=== PATIENT | female | born 1970 | race Caucasian/White ===

== ENCOUNTER 2024-12-22 19:51 | Emergency (ER) | payer OTHER ==
[~2024-12-22] VITALS: Ht 175.3 cm; Wt 95.8 kg
--- NOTE | 2024-12-22 20:13 | ELECTROCARDIOGRAPH REPORT ---
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 Brian Dhillon Measurements Intervals [place] Rate: 76 P: 70 [place]: 147 QRS: 51 QRSD: 80 T: 49 QT: 425 QTc: 478 Interpretive Statements Sinus rhythm Electronically Signed On 12-23-2024 6:12:[address] Brian Dhillon Please click the below link to view image of tracing.
[2024-12-22 20:26] LABS: MEAN PLATELET VOLUME 9.2 FL (7.4-10.4); RED CELL DISTRIBUTION WIDTH 13.1 % (11.5-14.5)
--- NOTE | 2024-12-22 20:42 | RADIOLOGY REPORT ---
EXAM: DI CHEST,SINGLE VIEW CLINICAL HISTORY: CP TECHNIQUE: Single PA view of the chest WID: COMPARISON: None FINDINGS: Lines and tubes: None Chest: The heart size and pulmonary vasculature is within normal limits. No pleural effusion, pneumothorax, or consolidation. Linear bibasilar scarring or atelectasis. The osseous structures are grossly intact. Mild multilevel thoracic spondylosis. IMPRESSION: No acute cardiopulmonary abnormality.
[2024-12-22 20:49] LABS: CREATININE 1.08 MG/DL (0.40-0.90); PRO BRAIN NATRIURETIC PEPTIDE 91 PG/ML (0-125); TOTAL CARBON DIOXIDE 23.0 MMOL/L (24-32); eCRCL 62 ML/MIN; eGFR 53 ML/MIN
--- NOTE | 2024-12-22 20:57 | Physician Documentation ---
History of Present Illness ~ Chief Complaint: Syncope Stated Complaint: PT PASSED OUT Time Seen by MD: 20:44 OK to notify your PCP?: No Mode of Arrival: POV HPI This 54-year-old female who presents to the ED this evening after having any reported the syncopal event while camping on the [place] earlier today. According to the patient she was sitting after getting set up for camp and felt noticed that she had changes to her vision and does not recall the syncopal event however her states that the she passed out for approximately a minute to two. This is a she was sleeping during this time. Noticed snoring respirations This just after the patient and her set up for camp and it was 98 F. in addition patient is a chronic cigarette smoker and has ongoing shortness of breath. She also states she has a hard time keeping up with drinking water and was likely dehydrated. Day of Onset: Dec 22, 2024 Medication Reconciliation Allergies: Coded Allergies: acetaminophen (Verified Adverse Reaction, Unknown, 12/22/24) nausea/vomiting hydrocodone (Verified Adverse Reaction, Unknown, 12/22/24) nausea/vomiting Review of Systems All Other Systems at this time: Reviewed and Negative ROS As stated above in the HPI, otherwise all systems are reviewed and negative. Physical Exam Vital Signs: Source: Oral, Heart Rate: 69, Respiratory Rate: 14, BP: 150/72, Pulse Oximetry: 98, Weight: 95.850 Physical Exam General: Alert, no apparent distress. Respiratory: Lungs clear, no respiratory distress. Chest: No accessory muscle use. Cardiovascular: Regular rate and rhythm, no murmurs. Gastrointestinal: Soft, nontender, nondistended. Bowels sounds present. Neurologic: Oriented x4. Psychiatric: Normal mood and affect. Skin: Normal color, warm and dry. No edema, no ecchymosis. Progress Results/Orders Results/Orders Completed Orders - SOTO CHU NP Normal Saline 1000ml (0.9% Sodium Chlori (12/22/24 20:55) Ondansetron Inj. (Zofran 4mg/2ml Vial) (12/22/24 20:55) Ua With Microscopic (12/22/24 21:28) Vital Signs 12/22/24 12/22/24 12/22/24 12/22/24 20:04 20:29 20:40 22:22 Temp 98.3 Pulse 78 69 79 Resp 17 15 14 14 B/P (MAP) 141/69 150/72 (98) 143/66 Pulse Ox 97 98 96 Laboratory Tests Test 12/22/24 20:18 12/22/24 21:28 White Blood Count 13.6 H Red Blood Count 4.57 Hemoglobin 13.7 Hematocrit 39.7 Mean Corpuscular Volume 86.9 Mean Corpuscular Hemoglobin 29.9 Mean Corpuscular Hemoglobin Concent 34.4 Red Cell Distribution Width 13.1 Platelet Count 213 Mean Platelet Volume 9.2 Neutrophils (%) (Auto) 70.5 Lymphocytes (%) (Auto) 22.2 Monocytes (%) (Auto) 5.1 Eosinophils (%) (Auto) 0.8 Basophils (%) (Auto) 1.4 H Neutrophils # (Auto) 9.6 H Lymphocytes # (Auto) 3.0 Monocytes # (Auto) 0.7 Eosinophils # (Auto) 0.1 Basophils # (Auto) 0.2 CBC Comment Sodium Level 138 Potassium Level 3.6 Chloride Level 103 Carbon Dioxide Level 23.0 L Anion Gap 12 Blood Urea Nitrogen 15 Creatinine 1.08 H Estimated GFR/1.73 m2 53 BUN/Creatinine Ratio 13.9 Glucose Level 117 H Calcium Level 9.2 Troponin I High Sensitivity 7 Pro-B-Type Natriuretic Peptide 91 Albumin 3.8 Chemistry Comments Urine Specimen Description Non-specified Urine Color Yellow Urine Clarity Clear Urine pH 6.0 Urine Specific Ethel <=1.005 Urine Protein Negative Urine Glucose (UA) Negative Urine Ketones Negative Urine Occult Blood Small Urine Nitrite Negative Urine Bilirubin Negative Urine Urobilinogen 0.2 Urine Leukocyte Esterase Negative Urine RBC 3-10 Urine WBC 0-4 Urine Squamous Epithelial Cells Many Urine Bacteria 1+ Urine Mucus Few Volume Urine Centrifuged 10 ml Urine Comment Medical Decision Making Findings This patient does present as though she may have had a syncopal event as reported. However, what I suspect is a mild case of COPD combined with dehydration and being out in the heat of the day is what led to her syncopal event based on her laboratory values and her reported social history cigarette smoking for decades Reported values were mostly unremarkable other than signs of dehydration. She refused received IV fluids Zofran and reported largely improved symptoms. Discharge home with the advice to stay hydrated and to cease cigarette smoking Differential Dx:Considerations: Include: anemia, CVA, dehydration, dysrhythmia, electrolyte imbalance, encephalopathy, Guillain-[place], hypoglycemia, hypotension, hypovolemia, labyrinthitis, Meniere's disease, myasathenia gravis, myocardial infarction, pulmonary embolus, renal failure, respiratory failure, TIA, VBI, vertigo central, vertigo peripheral, vestibular neuronitis, other Departure Disposition: HOME / SELF CARE / HOMELESS Impression: Primary Impression: Syncope Additional Impression: Dehydration Condition: Stable Discharge Instructions: Dehydration, Adult Referrals: NO PRIMARY CARE PROVIDER (PCP) Signature Scribe Signature: f Attestation: Scribed for Soto Chu [employer] by Soto Jacobson NP . 12/25/24 20:14 SOTO CHU NP Dec 22, 2024 20:57
[2024-12-22] MEDS: ondansetron/PF 4mg/2ml inj IV ONE (21:02)
[2024-12-22] MEDS: normal saline 1000ML IV soln IVB ONE (21:05)
[2024-12-22 21:38] LABS: LEUKOCYTE ESTERASE ,URINE NEGATIVE (Neg); NITRITES, URINE NEGATIVE (Neg); OCCULT BLOOD,URINE SMALL (Neg)
[2024-12-22 21:39] LABS: UA COLLECTION TYPE NON-SPECIFIED
[2024-12-22 21:43] LABS: MUCUS STRANDS FEW /LPF (Neg); SQUAMOUS EPITHELIAL CELL,UR MANY /LPF (FEW)
[2024-12-22 22:22] VITALS: BP 143/66; PULSE 79; RESP 14; TEMP 98.3; O2SAT 96
== END 2024-12-22 22:24 | disposition home or self-care (01) ==
LOC: ER 19:52
DX: R55 Syncope and collapse (principal); E86.0 Dehydration; F17.210 Nicotine dependence, cigarettes, uncomplicated; Z88.5 Allergy status to narcotic agent; Z88.6 Allergy status to analgesic agent
CPT/HCPCS: 36415; 71045; 80048; 81001; 83880; 84484; 85025; 93005; 96361; 96374; 99285; J2405; J7030